=== PATIENT | female | born 1945 | race Hispanic/Latino ===

== ENCOUNTER 2018-03-16 07:18 | Day surgery (SDC) | payer MEDICARE, BC ==
[2014-10-15 13:42] VITALS: BMI 30.2
[2018-03-16] MEDS ORDERED: Propofol 10 mg/ml Inj (20 ML) ONE (09:02)
[2018-03-16] MEDS ORDERED: Sodium Chloride 0.9% 1,000 ML IV SCH (10:15)
[2018-03-16 11:02] VITALS: BP 131/60; PULSE 80; RESP 18; TEMP 98; O2SAT 99
== END 2018-03-16 11:42 | disposition home or self-care (01) ==
LOC: ENDO 07:18
PROVIDERS: ATTEND Internal Medicine Gastroenterology
DX: K21.9 Gastro-esophageal reflux disease without esophagitis (principal); K22.70 Barrett's esophagus without dysplasia; K29.50 Unspecified chronic gastritis without bleeding
CPT/HCPCS: 43239; 88305; 88312; 88342; J2704; J7030; J7040